=== PATIENT | female | born 1955 | race Caucasian/White ===

== ENCOUNTER 2018-11-25 13:24 | Emergency (ER) | payer OTHER ==
[~2018-11-25] VITALS: Ht 165.1 cm; Wt 74.8 kg
[~2018-11-25 13:24] MED LIST: ACET325 PO; ALBU90OI6 INH; ALPR.25 PO; ALPR1 PO; ASPI325 PO; ATOR40TA PO; BENZ100A PO; BUSP10 PO; Bactrim Ds Tab1 EACH PO; CARV6.25 PO; CLOP75 PO; CYMBALTA; EPIN.3I IM; ERGO400 PO; ERGO50000 PO; ESOM20 PO; FLUO20 PO; GABA100 PO; GABA300 PO; GUAI600T33 PO; HYDMOR2 PO; Inderal 20 mg T20 MG PO; LEVSOD100 PO; LEVSOD50 PO; LEVSOD88 PO; LORA1 PO; NAPR500 PO; NITR.4SL SL; Norco 5-325 Ta1 EACH PO; ONDA4ODT MM; OXYACE5T PO; OXYC20ER PO; OXYC5 PO; PROM25 PO; PROP10 PO; Prozac20 MG PO; RXONDA4ODT MM; THYR60 PO; TRAZ100 PO; TRAZ50 PO; VARE1 PO; VENL75ER PO; VIT D PO; [UNRECOGNIZED DRUG - REMARK] PO
[2018-11-25] MEDS ORDERED: CEPH500 PO (15:32)
[2018-11-25 16:21] LABS: BASOPHILS ABSOLUTE AUTO 0.04 K/mm3 (0.00-0.23); BASOPHILS PERCENT AUTO 1 % (0-2); EOSINOPHILS PERCENT AUTO 3 % (0-6); Hematocrit 28.8 % (33.0-51.0); Hemoglobin 8.6 g/dL (11.5-16.0); IMMATURE GRAN ABSOLUTE AUTO 0.02 K/mm3 (0.00-0.10); IMMATURE GRAN PERCENT AUTO 0 % (0-1); LYMPHOCYTES ABSOLUTE AUTO 1.45 K/mm3 (0.84-5.20); LYMPHOCYTES PERCENT AUTO 19 % (21-46); MONOCYTES ABSOLUTE AUTO 0.71 K/mm3 (0.16-1.47); MONOCYTES PERCENT AUTO 9 % (4-13); Mean Corpuscular HGB Conc 29.9 g/dL (31.5-36.5); Mean Corpuscular Volume 77 fL (80-100); Mean Platelet Volume 9.4 fL (9.1-12.4); NEUTROPHILS ABSOLUTE AUTO 5.35 K/mm3 (1.96-9.15); NEUTROPHILS PERCENT AUTO 69 % (41-73); Platelet Count 463 K/mm3 (150-400); RDW Coefficient Variation 17.8 % (11.7-14.2); Red Blood Cell Count 3.74 M/mm3 (3.80-5.20); White Blood Cell Count 7.77 K/mm3 (4.00-11.30)
[2018-11-25 16:43] LABS: Alanine Aminotransfer (ALT/SGP 35 U/L (12-78); Albumin, Blood 3.7 g/dL (3.4-5.0); Albumin/Globulin Ratio 0.9 (0.8-1.8); Alk Phos 180 U/L (50-136); Anion Gap 5 mmol/L (6-16); Aspartate Aminotrans (AST/SGOT 29 U/L (12-37); Bilirubin, Total 0.3 mg/dL (0.1-1.0); Blood Urea Nitrogen 17 mg/dL (8-24); Bun/Creatinine Ratio 21.3 (12.0-20.0); CO2, Blood 25 mmol/L (21-32); Chloride, Blood 108 mmol/L (98-108); Globulin, Blood 4.3 g/dL (2.2-4.0); Glomerular Filtration Rate >60 (60-); Glucose, Blood 90 mg/dL (70-99); Potassium, Blood 3.7 mmol/L (3.5-5.5); Sodium, Blood 138 mmol/L (136-145)
[2018-11-25] MEDS ORDERED: Prednisone20 MG PO (18:00)
== END 2018-11-25 18:42 | disposition home or self-care (01) ==
LOC: ER 13:24
PROVIDERS: Physician Assistant
DX: L25.9 Unspecified contact dermatitis, unspecified cause (principal); L50.9 Urticaria, unspecified; Z87.891 Personal history of nicotine dependence; Z85.118 Personal history of other malignant neoplasm of bronchus and lung; Z88.6 Allergy status to analgesic agent; Z79.82 Long term (current) use of aspirin; Z79.52 Long term (current) use of systemic steroids; Z79.899 Other long term (current) drug therapy; Z79.02 Long term (current) use of antithrombotics/antiplatelets
CPT/HCPCS: 36415; 80053; 85025; 93971; 96374; 96375; 96376; 99284-25; J1170; J1200; J7512

== ENCOUNTER → 2020-05-31 | Outpatient (CLI) | payer OTHER ==
[~2020-05-31] MED LIST changes: +CEPH500 PO; +Prednisone20 MG PO
== END | disposition home or self-care (01) ==
LOC: LAB SHORT 14:46 → LAB 14:46
DX: R31.9 Hematuria, unspecified (principal)
CPT/HCPCS: 87086